=== PATIENT | male | born 1960 | race Caucasian/White ===

== ENCOUNTER 2019-06-23 12:24 | Emergency (ER) | payer MEDICAID ==
[~2019-06-23] VITALS: Ht 175.3 cm; Wt 90.0 kg
[~2019-06-23 12:24] MED LIST: ATOR10TA; METF500T3
[2019-06-23] MEDS ORDERED: HYDROCODONE/ACETAMINOPHEN 5/325MG TABLET PO ONE (14:00)
[2019-06-23] MEDS ORDERED: KETOROLAC 60MG/2ML VIAL IM ONE (14:00)
[2019-06-23 16:20] VITALS: BP 151/79
== END 2019-06-23 16:22 | disposition home or self-care (01) ==
LOC: ER 12:24
DX: S13.4XXA Sprain of ligaments of cervical spine, initial encounter (principal); V49.20XA Unspecified car occupant injured in collision with unspecified motor vehicles in nontraffic accident, initial encounter; Y93.89 Activity, other specified; Y92.410 Unspecified street and highway as the place of occurrence of the external cause
CPT/HCPCS: 72040; 96372; 99283; J1885